=== PATIENT | female | born 1985 | race Caucasian/White ===

== ENCOUNTER → 2023-06-18 07:17 | Outpatient (REF) | payer BC, SELFPAY | LOC: DHCBC HW 07:17 | PROVIDERS: ATTENDING PHYSICIAN Internal Medicine Cardiovascular Disease; FAMILY PHYSICIAN Family Medicine | DX: I45.10 Unspecified right bundle-branch block (principal); I25.10 Atherosclerotic heart disease of native coronary artery without angina pectoris; R00.2 Palpitations; Z86.711 Personal history of pulmonary embolism | CPT/HCPCS: 93306 ==

== ENCOUNTER 2024-11-10 14:11 | Emergency (ER) | payer OTHER, SELFPAY ==
[2024-11-10 14:17] VITALS: BP 128/89
[2024-11-10 14:33] LABS: Hematocrit 38.8 % (37.0-47.0); Hemoglobin 13.0 g/dL (12.0-16.0); Mean Corp Hgb Conc. 33.5 g/dL (33.0-37.0); Mean Corpuscular Volume 92.2 fL (81.0-99.0); Nucleated Red Blood Cells % 0 %; Platelet Count 256 10^3/uL (130-400); Red Cell Dist. Width 12.6 % (11.5-14.5)
[2024-11-10 14:44] LABS: INR 0.96; PT 13.3 Sec (11.4-14.6)
[2024-11-10 14:55] LABS: ALT (SGPT) 15 U/L (0-35); AST (SGOT) 15 U/L (14-36); Albumin 4.3 g/dl (3.5-5.0); Alkaline Phosphatase 55 U/L (38-126); Blood Urea Nitrogen 7 mg/dl (7-17); Calcium 9.8 mg/dl (8.4-10.2); Carbon Dioxide 22 mmol/L (22-30); Chloride 109 mmol/L (98-107); Glucose 156 mg/dl (70-99); Potassium 4.2 mmol/L (3.5-5.1); Sodium 139 mmol/L (135-145); Total Protein 6.9 g/dl (6.3-8.2); eGFR > 60.00
[2024-11-10 15:31] LABS: Troponin I < 0.012 ng/ml
[2024-11-10 18:22] VITALS: BMI 31.9
[2024-11-10 18:26] VITALS: BP 130/86
--- NOTE | 2024-11-10 18:32 | ED.GENMED ---
History of Present Illness
General
Chief Complaint: Cardiac Symptoms
Source: patient
Exam Limitations: none
Time Seen by Provider: 11/10/24 18:06
Nursing documentation reviewed up to this point in time: agreed with
History of Present Illness
History of Present Illness:
Patient is a 39-year-old female with history pulmonary embolism who presents to the emergency department for evaluation of chest tightness and left-sided back comfort. Patient states that over the past few weeks she has been treated for an asthma
exacerbation as she has been having ongoing chest tightness. She has been following with both her primary care and her combat rifle crewmember and is currently on steroids as well as albuterol inhaler/nebulizers at home.
She feels that the symptoms may be mildly improving however last night she noticed a pain in her left scapular region, worse when coughing or when taking a deep breath. When she woke this morning�she felt that her right ankle seemed somewhat
swollen. She spoke with her combat rifle crewmember to given history of PE and recent symptoms�recommended evaluation in the emergency department to rule out blood clot.
Patient denies any exertional component to symptoms. No complaint of current chest pain. She denies any fever, chills, or productive cough.
Patient does have a history of a pulmonary embolism in 2019 and was treated with anticoagulation for a few years however is no longer anticoagulated. It was thought that pulmonary embolism was secondary to OCP which she has since discontinued.
Past History
Past History
ED Past Medical History: Asthma and Other (PE)
ED Past Surgical History: None
Social History
Tobacco: Non-smoker
Alcohol: Occasional
Drug: None
Personal: Single
Living: with family
Employment: Employed
Family History
Family History: Other (n/c)
Review of Systems
Review of Systems
Allergies reviewed?: Yes
All Other Systems: ROS reviewed and negative except as documented in HPI and ROS
Phy Exam
Physical Exam
Physical Exam:
Vitals: Mildly tachycardic on arrival. Otherwise vital signs stable. Afebrile
General: Patient is well appearing, no acute distress. Nontoxic appearing
Skin: Warm and dry, no rashes or lesions
Head: Normocephalic, atraumatic
Eyes: Sclera nonicteric.
Throat: Protecting airway
Neck: Normal ROM, no cervical spine tenderness, no meningismus. No JVD
Cardiac: Mildly tachycardic, normal rhythm, no murmurs. No reproducible chest wall tenderness
Pulm: Normal respiratory effort. Lungs clear bilaterally without wheeze.
Abdomen: No abdominal tenderness.
Extremities: No evidence of cyanosis or edema. No reproducible tenderness of bilateral lower extremities. Negative Homans' sign bilaterally. 2+ palpable DP pulses bilaterally
Neuro: AAOx3. Grossly intact.
Psychiatric: Normal affect.
Course
Orders/Labs/Results
Orders:
Orders
11/10/24 14:12
ECG [Electrocardiogram (*1)] Urgent
Reason for Study: Chest Pain
EKG- Treatment ONCE
11/10/24 14:26
Complete Blood Count/With Diff Urgent
Comprehensive Metabolic Panel Urgent
HCG, Serum Qualitative Screen Urgent
Comment: ADD ON
Prothrombin Time Urgent
Troponin I Urgent
11/10/24 18:18
CT Chest PE Study Urgent
Comment: hx PE
Reason For Exam: chest tightness, L scapular pain
Legs, Right US [US Periph Venous LOWER Ext RT] Urgent
Comment: hx PE
Reason For Exam: atraumatic right leg swelling
11/10/24 18:43
Add On- LAB Urgent
Tests Added?: hcg qualitative serum
11/10/24 21:15
Ketorolac [Toradol] 15 mg IV NOW STA
Abnormal Lab Results
11/10/24
14:26
Absolute Lymphs (auto) 0.8 L 10^3/uL
(1.2-3.4)
Neutrophils % 85.7 H %
(42.2-75.2)
Lymphocytes % 11.1 L %
(20.5-51.1)
Chloride 109 H mmol/L
(98-107)
Creatinine 0.5 L mg/dL
(0.6-1.0)
Glucose 156 H mg/dl
(70-99)
11/10/24 14:26
11/10/24 14:26
Vital Signs
Initial and Last Documented VS:
Initial Vital Signs
Temp Pulse BP Pulse Ox
98.4 F 106 128/89 97
11/10/24 14:17 11/10/24 14:17 11/10/24 14:17 11/10/24 14:17
Last Documented Vital Signs
Temp Pulse Resp BP Pulse Ox
98.4 F 78 20 131/74 99
11/10/24 14:17 11/10/24 21:50 11/10/24 21:50 11/10/24 21:00 11/10/24 21:50
MDM/Problems Addressed
Differential Diagnosis Includes:
Not limited to: Asthma exacerbation, bronchitis, pulmonary embolism, dependent edema, DVT, etc.
MDM/Problems Addressed:
39-year-old female presenting with asthma exacerbation over the past few weeks, now with left scapular pain. Also with some right ankle swelling this morning which has resolved. She has had mild improvement in chest tightness and wheezing with
DuoNebs and steroids as prescribed by pulmonology. Patient does have history of pulmonary embolism, not currently on any anticoagulation. Patient mildly tachycardic on arrival, otherwise vital signs stable. Physical exam as above. Patient
well-appearing, no apparent respiratory stress. Heart regular rate and rhythm. Lungs are clear bilaterally without wheezing. No current evidence of lower extremity edema or swelling. Negative Homans' sign bilaterally. No reproducible tenderness
in left scapular area.
Differential broad. Possible musculoskeletal pain versus costochondritis given recent asthma exacerbation and cough. However, given her history there would be a concern for pulmonary embolism. Do not suspect acute coronary syndrome.
Basic labs were sent prior to my evaluation without any clinically significant abnormalities. Troponin is undetectable.
Given history of PE and right ankle swelling�will obtain ultrasound to rule out DVT as well as CTA chest to rule out pulmonary embolism. Patient stable and comfortable appearing.
Update: Ultrasound without evidence of DVT. CT chest without any acute abnormalities including pulmonary embolism. Workup in ED negative. Feel stable for discharge home with continued pulmonology follow-up outpatient. She is currently on course
of steroids for asthma exacerbation as prescribed by pulmonology which she was instructed to continue. She will continue with albuterol inhalers at home, as well. Strict return precautions discussed
Chronic conditions affecting care:
History of PE, asthma
Acute Exacerbation and/or Progression of Chronic Illness:
Acute asthma exacerbation
*Radiology
Radiology exam reviewed: radiology read reviewed
*Pulse Oximetry
SaO2: 97
Oxygen Mode of Delivery: Room air
Patient hypoxic: no
*EKG
Interpreted by ED Provider?: Yes
EKG Intrepretation Date: 11/10/24
Interpretation: abnormal
Comparison EKG: changes noted
Heart Rate: 98
Rate: normal
Rhythm: sinus
[place]: normal axis
Interval: normal QT interval
QRS Pattern: right bundle branch block
Ischemia: non-specific ST changes
*Territory Sales Manager Interpretation
Rate: normal
Interpretation: normal
Heart Rate: 76
Rhythm: sinus
*Critical Care Note
Total Time (30-74mins, 75-104mins- exclusive of procedures): Not Applicable
ED Attending Note
-
Portions of this chart may have been created with voice recognition software.� Occasional wrong word or��sound alike� substitutions may have occurred due to the inherent limitations of voice recognition software.
Discharge Plan
Departure
Patient Disposition: Home (Routine Discharge)
Date of Disposition: 11/10/24
Time of Disposition: 21:22
Patient with high blood pressure during this ER visit?: Yes
Discharge Problem:
Pain, upper back, Chest tightness
Instructions: Chest Pain (DC), Asthma in adults - ED discharge instructions, BLOOD PRESSURE
Prescriptions:
No Action
Advair Inhaler
1 puff inhalation PRN PRN (Reason: asthma)
Patient Comments:
pt does not know concentration
Liat
1 tab PO DAILY
Patient Comments:
pt does not know dose
pirbuterol [Maxair [employer]] 14 GM aerosol breath activated
14 gm IH DAILY
doxycycline hyclate 100 MG capsule
100 mg PO Q12 Qty: 20 0RF
prednisone 20 mg tablet
20 mg PO BID Qty: 14 0RF
hydroxyzine HCl 10 mg tablet
10 - 20 mg PO Q6H PRN (Reason: itching) Qty: 20 0RF
Referrals:
Amaya Haq DO [Family Provider, Family Practice] - Follow up in 5-7 days
Activity Restrictions/Additional Instructions:
RETURN TO THE EMERGENCY DEPARTMENT WITH ANY FEVERS, CHEST TIGHTNESS OR SHORTNESS OF BREATH/DIFFICULTY BREATHING, WORSENING BACK PAIN, LOWER EXTREMITY SWELLING, EPISODES OF FAINTING, WORSENING IN CURRENT SYMPTOMS, OR ANY OTHER CONCERNS
- As discussed�your lab work showed no acute abnormalities. Your ultrasound showed no evidence of a blood clot in your right lower leg. Your CT scan showed no evidence of pulmonary embolism.
- Please continue to take your steroids and use your inhaler/nebulizer as prescribed by your combat rifle crewmember for suspected asthma flare. Follow-up with pulmonology for further evaluation/management to ensure that your symptoms are improving
Monitor your symptoms very closely and return to the emergency department with any acute worsening/new symptoms or any other concern
Interventions
Interventions:
*Risk Screen - Suicide Last Done: 11/10/24 14:19
*General Assessment Last Done: 11/10/24 14:19
*Neglect/Abuse Screening Last Done: 11/10/24 14:19
*ED- Fall Risk Assessment Last Done: 11/10/24 14:19
*ED COVID-19 Vaccine History Last Done: 11/10/24 14:19
*Nursing Disposition Last Done: 11/10/24 21:50
ED- Pulmonary Assessment Last Done: 11/10/24 18:27
ED- Cardiac Assessment Last Done: 11/10/24 18:27
Discharge Date and Time
Discharge Date/Time: 11/10/24 21:50
Print Language: [id number]
[2024-11-10 19:15] LABS: HCG, Serum Qualitative Screen Negative
[2024-11-10 20:37] VITALS: BP 141/82
[2024-11-10 21:00] VITALS: BP 131/74
[2024-11-10] MEDS: TORADOL 15 MG IV (21:24)
== END 2024-11-10 21:50 | disposition home or self-care (01) ==
LOC: EMR 14:11
PROVIDERS: Emergency Medicine; EMERGENCY PHYSICIAN Student in an Organized Health Care Education/Training Program; FAMILY PHYSICIAN Family Medicine
DX: M54.6 Pain in thoracic spine (principal); R07.89 Other chest pain; R22.41 Localized swelling, mass and lump, right lower limb; J45.909 Unspecified asthma, uncomplicated; Z86.711 Personal history of pulmonary embolism
CPT/HCPCS: 96374; 99284; 71275; 80053; 84484; 84703; 85025; 85610; 93005; 93971; Q9967